=== PATIENT | female | born 1990 | race Caucasian/White ===

== ENCOUNTER 2016-08-10 10:31 | Day surgery (SDC) | payer OTHER ==
[~2016-08-10] VITALS: Ht 150.9 cm; Wt 104.1 kg
[2016-08-10 14:01] VITALS: BP 134/74; BMI 45.7
[2016-08-10 14:15] LABS: HCG URINE NEGATIVE (NEGATIVE)
[2016-08-10 14:19] LABS: BASOPHILS 0.2 % (0-2); EOSINOPHILS 0.9 % (0-7); HEMATOCRIT 40.5 % (36.0-48.0); HEMOGLOBIN 13.3 g/dL (12-16); IMMATURE GRANULOCYTES 0.2 % (0-5); LYMPHOCYTES 21.8 % (15-50); MCH 29.9 pg (26.0-34.0); MCHC 32.8 g/dL (31.0-37.0); MEAN PLATELET VOLUME 9.4 fL (7.4-10.4); MONOCYTES 4.3 % (2-11); NEUTROPHILS 72.6 % (40-80); PLATELET COUNT 354 10x3/uL (130-400); RBC 4.45 10x6/uL (4.00-5.40); RDW 12.5 % (11.5-14.5); WBC 9.9 10x3/uL (4.8-10.8)
[2016-08-10 14:58] LABS: CALC OSMOLALITY 278 mosm/kg (275-300); CALCIUM 9.4 mg/dL (8.5-10.1); CARBON DIOXIDE 29.3 mmol/L (21.0-32.0); CHLORIDE - SERUM 104 mmol/L (98-107); CREATININE - SERUM 0.8 mg/dL (0.6-1.3); GLUCOSE 85 mg/dL (74-106); POTASSIUM - SERUM 4.1 mmol/L (3.5-5.1); SODIUM 141 mmol/L (136-145); UREA NITROGEN 11 mg/dL (7-18); eGFR NON AFRICAN AMERICAN > 90 mL/min (90-120)
--- NOTE | 2016-08-10 20:20 | NUR ---
REPORT CALLED TO [facility], PATIENT TRANSPORTED TO ROOM 1223 VIA WHEELCHAIR, PATIENT AWAKE, ALERT, DENIES COMPLAINTS
--- NOTE | 2016-08-10 20:30 | NUR ---
REC'D PT TO ROOM 1223 VIA W/C FROM [facility] SERVICES. PT AWAKE AND ALERT ORIENTED X3 AND AMBULATORY. ASSISTED PT TO BED. IV OF LR INFUSING TO RAC, PLACED ON PUMP AT 125CC/HR. RESP EVEN AND UNLABORED. LUNGS CLEAR BILATERALLY. BOWEL SOUNDS PRESENT X4. PT'S MOTHER AND S/O IS PRESENT IN ROOM AND SUPPORTIVE. CALL LIGHT IN REACH. SIDE RAILS UP X2. PT RATES PAIN 4/10. REFUSES MEDICATION AT THIS TIME. REMINDED PT SHE CANNOT HAVE ANYTHING TO EAT OR DRINK UNTIL AFTER SURGERY. PT VERBALIZED UNDERSTANDING. JEREMIAH ARVIZU
[2016-08-10 20:32] VITALS: BP 110/70; Ht 150.9 cm; Wt 104.1 kg
--- NOTE | 2016-08-10 22:45 | NUR ---
PT RESTING WITH EYES CLOSED, RESP QUIET, NO DISTRESS NOTED, LEFT UNDISTURBED AT THIS TIME, BEDDING PROVIDED TO PT'S MOM
--- NOTE | 2016-08-10 23:09 | NUR ---
PT TO SX VIA BED PER SX CREW
--- NOTE | 2016-08-10 23:53 | HP ---
PATIENT: MAEGAN OWENS MEDICAL RECORD: [id number] ACCOUNT: [id number] LOCATION:[id number] : 92 ADMISSION DATE: 08/10/16 HISTORY AND PHYSICAL EXAMINATION HISTORY OF PRESENT ILLNESS: This patient is a 25-year-old 3, para 2 white female with incomplete spontaneous AB. She has been treated conservatively with observation medication and continues to have bleeding. DRUG ALLERGIES: None known. CURRENT MEDICATIONS: Completed a course of metronidazole currently taking vitamins. PREVIOUS SURGERIES: section times 2. MEDICAL PROBLEMS: None known. PHYSICAL EXAMINATION: VITAL SIGNS: Blood pressure is 130/90. Weight 227 pounds giving her a BMI of 46. HEENT: Unremarkable. LUNGS: Clear. HEART: Regular rate and rhythm. ABDOMEN: Soft and nontender. PELVIC: Reveals dark blood per vagina. Bimanual exam is compromised by obesity. EXTREMITIES: Unremarkable. NEUROLOGIC: Grossly intact. IMPRESSION: Spontaneous incomplete AB treated conservatively, continues to bleed. PLAN: D&C this p.m. ADDENDUM: The patient's blood type is A positive. TRANSINT:[id number] Voice Confirmation ID: [id number] DOCUMENT ID: [id number] RAH GR MD at 2353 CC: [id number] DICTATION DATE: 08/10/16 1320 SIZE CHANGER: 08/10/16 1420 [facility] [address] [place] [address]
[2016-08-11] VITALS (9 sets, daily range): BP systolic 99–131; BP diastolic 47–81
--- NOTE | 2016-08-11 00:27 | NUR ---
RECEIVED PT VIA BED FROM POST D&C PER DR GR, PT BACK TO ROOM 1223, IV IN LEFT AC INTACT WITH NO REDNESS OR EDEMA INFUSING LR WITH PITOCIN AT 125 ML/HR, VS INITIATED, SCD'S ON AND WORKING PROPERLY, PT ON 2L NC WHILE SLEEPING, PT AROUSES TO SOFT VERBAL STIMULATION, PT ORIENTED TO ROOM, BE IN LOW POSITION, SIDE RAILS X 2, CALL LIGHT IN REACH, PT'S MOM AT BEDSIDE
--- NOTE | 2016-08-11 00:59 | NUR ---
PT C/O ABD CRAMPING, ADM TORADOL SIVP PER MD ORDERS, SEE EMAR, PT REQUESTED AND SERVED LEMON MOAPA SODA AND NEY CRACKERS, PT DENIES FURTHER NEEDS
--- NOTE | 2016-08-11 02:00 | NUR ---
PT RESTING WITH EYES CLOSED RESP QUIET, DO DISTRESS NOTED, LEFT UNDISTURBED AT THIS TIME, PT'S MOM ASLEEP IN RECLINER
--- NOTE | 2016-08-11 03:30 | NUR ---
DEE DEE NOVAK RN, REPORTS THAT PT WAS UP TO BR, VOIDED 300 MLS BY SELF WITH NO DIFFICULTY, ASSISTED PT WITH APOLINAR CARE AND APOLINAR PANTIES
--- NOTE | 2016-08-11 04:00 | NUR ---
PT RESTING WITH EYES CLOSED, RESP QUIET, NO DISTRESS NOTED, LEFT UNDISTURBED AT THIS TIME, PT'S MOM ASLEEP IN RECLINER
--- NOTE | 2016-08-11 05:10 | NUR ---
PT RESTING WITH EYES CLOSED, RESP QUIET, NO DISTRESS NOTED, LEFT UNDISTURBED AT THIS TIME, PT'S MOM ASLEEP IN RECLINER
--- NOTE | 2016-08-11 07:00 | NUR ---
SHIFT REPORT TO COREY ROSA RN
--- NOTE | 2016-08-11 07:30 | NUR ---
PT IS RECEIVED LYING IN BED AWAKE AND TALKING TO HER MOM. SHE STATES THAT HER PAIN IS ABOUT A 5. GEN- AWAKE AND ALERT. LUNGS- CLEAR. HEART- RRR. ABD- SOFT WITH SOME LOWER ABDOMINAL TENDERNESS. SMALL LOCIA RUBRA. EXT- NO EDEMA. BED IS LOW, SIDE RAILS UP X 2 AND CALL LIGHT IN REACH. PT IS READY TO GO HOME.
--- NOTE | 2016-08-11 08:00 | NUR ---
DR GR IS HERE TO SEE PT. PT IS BEING DISCHARGED.
[2016-08-11] MEDS ORDERED: VIBRAMYCIN 100100 MG PO (08:42)
[2016-08-11] MEDS ORDERED: IBUPROFEN600 MG PO (08:43)
--- NOTE | 2016-08-11 08:57 | NUR ---
PTS DISCHARGE INSTRUCTIONS WERE DISCUSSED AND DISCHARGE INSTUCTION HANDOUTS GIVEN. FU APPT WITH DR GR AND PRESCRIPTIONS GIVEN. PT INSTRUCTED TO CALL US WITH ANY QUESTIONS OR PROBLEMS. PT TAKEN TO FRONT OF HOSPITAL BY WHEELCHAIR.
--- NOTE | 2016-08-13 07:34 | OP ---
PATIENT NAME: MAEGAN OWENS MEDICAL RECORD: [id number] :89 LOCATION:[facility] ADMISSION DATE: SURGEON: JUANITA GR MD DATE OF OPERATION: 08/10/2016 PREOPERATIVE DIAGNOSIS: Incomplete spontaneous . POSTOPERATIVE DIAGNOSIS: Incomplete spontaneous . PROCEDURE: Suction D&C. SURGEON: Juanita Gr M.D. ANESTHESIA: General. FINDINGS: An 8-9 week size uterus with tissue consistent in appearance with incomplete AB. ESTIMATED BLOOD LOSS: Minimal. COMPLICATIONS OF PROCEDURE: None. OPERATIVE NOTE: The patient was taken to the OR and under adequate general anesthesia, prepped and draped in the usual manner for vaginal procedures with legs in floating boot Fadi stirrups. The anterior lip of the cervix was grasped with an Allis clamp. Cervix was progressively dilated to accept a #10 suction curette. Suction curettage was then carried out without difficulty or complication. A gentle sharp curettage was then done to assure complete emptying of the uterus. At the end of procedure, all instruments were removed, bleeding was minimal and the patient went to recovery area in good condition. TRANSINT:[id number] Voice Confirmation ID: [id number] DOCUMENT ID: [id number] JUANITA GR MD at 0734 CC: [id number] DICTATION DATE: 08/10/16 2358 HISTOPATHOLOGIST: 08/11/16 0754 [facility] 08/11/16 [place] [id number]
== END 2016-08-11 09:00 | disposition home or self-care (01) ==
LOC: D.OPS 10:31 → D.WS 20:23 → D.OPS 08-11 09:00
PROVIDERS: Obstetrics & Gynecology
DX: O03.4 Incomplete spontaneous abortion without complication (principal); Z87.891 Personal history of nicotine dependence; Z01.812 Encounter for preprocedural laboratory examination; E66.01 Morbid (severe) obesity due to excess calories; Z68.42 Body mass index [BMI] 45.0-49.9, adult

== ENCOUNTER → 2018-06-23 10:48 | Outpatient (CLI) | payer MEDICAID ==
[2016-08-10 20:32] VITALS: BMI 45.7
[~2018-06-23 10:48] MED LIST: IBUPROFEN600 MG PO; VIBRAMYCIN 100100 MG PO
[2018-06-23 11:46] LABS: BASOPHILS 0.1 % (0-2); EOSINOPHILS 1.2 % (0-7); HEMATOCRIT 33.7 % (36.0-48.0); HEMOGLOBIN 11.5 g/dL (12-16); IMMATURE GRANULOCYTES 0.3 % (0-5); LYMPHOCYTES 8.4 % (15-50); MCHC 34.1 g/dL (31.0-37.0); MONOCYTES 5.6 % (2-11); NEUTROPHILS 84.4 % (40-80); RBC 3.83 10x6/uL (4.00-5.40); RDW 13.3 % (11.5-14.5); WBC 11.6 10x3/uL (4.8-10.8)
[2018-06-23 11:52] LABS: PLATELET COUNT 267 10x3/uL (130-400)
[2018-06-23 12:05] LABS: ALT (SGPT) 18 U/L (10-68); CALC OSMOLALITY 272 mosm/kg (275-300); CALCIUM 9.4 mg/dL (8.5-10.1); CARBON DIOXIDE 23.8 mmol/L (21.0-32.0); CHLORIDE - SERUM 104 mmol/L (98-107); CREATININE - SERUM 0.6 mg/dL (0.6-1.3); GLUCOSE 99 mg/dL (74-106); POTASSIUM - SERUM 3.4 mmol/L (3.5-5.1); SODIUM 138 mmol/L (136-145); UREA NITROGEN 5 mg/dL (7-18); URIC ACID 4.2 mg/dL (2.6-7.2); eGFR NON AFRICAN AMERICAN > 90 mL/min (90-120)
== END | disposition home or self-care (01) ==
LOC: D.LDO 10:48
PROVIDERS: ATTEND Obstetrics & Gynecology
DX: O26.899 Other specified pregnancy related conditions, unspecified trimester (principal); Z3A.00 Weeks of gestation of pregnancy not specified

== ENCOUNTER → 2018-09-20 11:19 | Outpatient (CLI) | payer MEDICAID ==
[2016-08-10 20:32] VITALS: BMI 45.7
[2018-09-20 12:05] LABS: BASOPHILS 0.1 % (0-2); EOSINOPHILS 0.7 % (0-7); HEMATOCRIT 34.6 % (36.0-48.0); HEMOGLOBIN 11.8 g/dL (12-16); IMMATURE GRANULOCYTES 0.3 % (0-5); LYMPHOCYTES 15.7 % (15-50); MCH 29.6 pg (26.0-34.0); MCHC 34.1 g/dL (31.0-37.0); MCV 86.9 fL (80.0-100.0); MEAN PLATELET VOLUME 10.2 fL (7.4-10.4); MONOCYTES 4.4 % (2-11); NEUTROPHILS 78.8 % (40-80); PLATELET COUNT 295 10x3/uL (130-400); RBC 3.98 10x6/uL (4.00-5.40); RDW 14.2 % (11.5-14.5); WBC 10.5 10x3/uL (4.8-10.8)
[2018-09-20 12:14] LABS: ALBUMIN 2.8 g/dL (3.4-5.0); ALKALINE PHOSPHATASE 126 U/L (46-116); ALT (SGPT) 20 U/L (10-68); BILIRUBIN - DIRECT 0.05 mg/dL (0.00-0.30); BILIRUBIN - INDIRECT 0.09 mg/dL (0.00-1.00); BILIRUBIN - TOTAL 0.14 mg/dL (0.2-1.3); CALC OSMOLALITY 274 mosm/kg (275-300); CALCIUM 9.5 mg/dL (8.5-10.1); CARBON DIOXIDE 23.2 mmol/L (21.0-32.0); CHLORIDE - SERUM 104 mmol/L (98-107); CREATININE - SERUM 0.6 mg/dL (0.6-1.3); POTASSIUM - SERUM 4.1 mmol/L (3.5-5.1); PROTEIN - SERUM 6.5 g/dL (6.4-8.2); SODIUM 140 mmol/L (136-145); UREA NITROGEN 8 mg/dL (7-18); URIC ACID 5.5 mg/dL (2.6-7.2); eGFR NON AFRICAN AMERICAN > 90 mL/min (90-120)
[2018-09-20 12:16] LABS: GLUCOSE 70 mg/dL (74-106)
[2018-09-22 06:10] LABS: RAPID PLASMA REAGIN Non Reactive (Non Reactive)
== END | disposition home or self-care (01) ==
LOC: D.LDO 11:19
PROVIDERS: ATTEND Obstetrics & Gynecology
DX: O26.893 Other specified pregnancy related conditions, third trimester (principal); Z3A.39 39 weeks gestation of pregnancy